=== PATIENT | male | born 1980 | race Caucasian/White ===

== ENCOUNTER → 2018-12-10 | Day surgery (SDC) | payer OTHER ==
[2018-12-04 15:35] LABS: BASOPHILS # (AUTO) 0.1 (0.0-0.1); BASOPHILS % 0.7 % (0.0-1.0); EOSINOPHILS # (AUTO) 0.2 (0.0-0.4); EOSINOPHILS % 2.2 % (0.0-6.0); HEMATOCRIT 39.4 % (38.2-49.6); HEMOGLOBIN 13.9 g/dL (14.0-18.0); LYMPHOCYTES # (AUTO) 2.5 (1.0-3.2); LYMPHOCYTES % 36.6 % (18.0-39.1); MEAN CORPUSCULAR HEMOGLOBIN 30.2 pg (28-32); MEAN CORPUSCULAR HGB CONC 35.3 g/dL (31-35); MEAN CORPUSCULAR VOLUME 85.5 fL (81-99); MONOCYTES # (AUTO) 0.6 (0.2-0.8); MONOCYTES % 9.4 % (4.4-11.3); NEUTROPHILS # (AUTO) 3.4 (2.1-6.9); NEUTROPHILS % 50.7 % (38.7-80.0); PLATELET COUNT 309 x10e3/uL (140-360); RED BLOOD COUNT 4.61 x10e6/uL (4.3-5.7); RED CELL DISTRIBUTION WIDTH 12.5 % (11.7-14.4)
[2018-12-04 15:38] LABS: CLARITY,URINE CLEAR (CLEAR); COLOR,URINE YELLOW (YELLOW); LEUKOCYTE ESTERASE ,URINE NEGATIVE (NEGATIVE); NITRITE,URINE NEGATIVE (NEGATIVE); PROTEIN,URINE DIPSTICK NEGATIVE (NEGATIVE); URINE UROBILINOGEN 0.2 mg/dL (0.2 - 1)
[2018-12-04 15:39] LABS: BILIRUBIN,URINE NEGATIVE (NEGATIVE); KETONES,URINE NEGATIVE (NEGATIVE)
[2018-12-04 15:52] LABS: INR 0.93; PARTIAL THROMBOPLASTIN TIME 28.2 seconds (23.8-35.5)
[2018-12-04 15:53] LABS: ANION GAP 13.6 mmol/L (8-16); BLOOD UREA NITROGEN 11 mg/dL (7-26); BUN/CREATININE RATIO 11 (6-25); CALCIUM 10.1 mg/dL (8.4-10.2); CARBON DIOXIDE 26 mmol/L (22-29); CHLORIDE 101 mmol/L (98-107); CREATININE, SERUM 0.97 mg/dL (0.72-1.25); EST GLOMERULAR FILTRATION RATE > 60 ML/MIN (60-); GLUCOSE 66 mg/dL (74-118); POTASSIUM 3.6 mmol/L (3.5-5.1); SODIUM 137 mmol/L (136-145)
--- NOTE | 2018-12-04 16:55 | Diagnostic Imaging Report ---
EXAM: CHEST 2 VIEWS DATE: 12/04/2018 2:41 PM INDICATION: Preop foot surgery ^PREOP ^20181204 ^1505 COMPARISON: None FINDINGS: Lines and tubes: None Heart size normal. No focal pulmonary opacity, pleural effusion or pneumothorax. Upper abdomen unremarkable. No acute bony abnormality. IMPRESSION: No evidence for acute disease. Signed by: Dr. Jay Samuel M.D. on 12/04/2018 4:52 PM
[~2018-12-10] MED LIST: BACITRACIN 50,000 UNIT VIAL ONE; BUPIVACAINE HCL 0.5% INJ 30 ML VIAL INJ ONE; CLINDAMYCIN PHOS 900MG/ 50ML 50 ML IV ONE; DEXAMETHASONE SOD PHOS INJ 4 MG/ML VIAL ONE; FENTANYL CITRATE/PF 100MCG/2 ML INJ ONE; LIDOCAINE HCL 1% LOCAL INJ 20 ML VIAL ONE; LIDOCAINE HCL 2% LOCAL INJ 5 ML SDV VIAL INJ ONE; MIDAZOLAM HCL 2 MG/2 ML VIAL ONE; ONDANSETRON HCL INJ 2MG/ML 2ML 2 MG/ML VIAL ONE; PROPOFOL IV EMULSION 10 MG/ML 20 ML VIAL ONE; SEVOFLURANE INHAL SOLN 250 ML PEN BTL ONE
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
--- OUTSIDE RECORDS SUMMARY | 2018-12-10 11:36 | XMS REPORT ---
Author Author [facility] Address Unknown Phone Unavailable Care Team Providers Care Defensive Fire Control Systems Operator Name Role Phone Cindy MATHUR Unavailable Unavailable Problems This patient has no known problems. Allergies, Adverse Reactions, Alerts This patient has no known allergies or adverse reactions. Medications This patient has no known medications. Results Test Description Test Time Test Comments Text Results Atomic Results Result Comments CHEST 2 VIEWS 2018-12-04 16:50:00 [place] [address] Patient Name: CHAD VALDES MR #: [id number] : 1980 Age/Sex: 38/M Req #: [id number] Adm Physician: Ordered by: DANNIE MATHUR DPM Report #: [id number] Location: OR Room/Bed: Procedure: [id number] DX/CHEST 2 VIEWS Exam Date: 12/04/18 Exam Time: 1505 REPORT STATUS: Signed EXAM: CHEST 2 VIEWS DATE: 12/04/2018 2:41 PM IND ICATION: Preop foot surgery PREOP 20181204 150 COMPARISON: None FINDINGS: Lines and tubes: None Heart size normal. No focal pulmonary opacity, pleural effusion or pneumothorax. Upper abdomen unremarkable. No acute bony abnormality. IMPRESSION: No evidence for acute disease. Signed by: Dr. Carlos Lanier M.D. on 12/04/2018 4:52 PM Dictated By: CARLOS LANIER MD 51 Transcribed By: SHERIDAN on 12/04/181651 COPY TO: DANNIE MATHUR DPM
[2018-12-10 18:35] VITALS: BP 131/86
--- NOTE | 2018-12-11 00:09 | Operative Report ---
DATE OF PROCEDURE: 12/10/2018 SURGEON: lCara Monroy DPM COFFIN MAKER: None. PREOPERATIVE DIAGNOSES: 1. Soft tissue mass, dorsal left first metatarsal. 2. Exostosis, dorsal left first metatarsal. POSTOPERATIVE DIAGNOSES: 1. Soft tissue mass, dorsal left first metatarsal. 2. Exostosis, dorsal left first metatarsal. PROCEDURES: 1. Excision of soft tissue mass, dorsal left first metatarsal. 2. Exostectomy, dorsal left first metatarsal. ANESTHESIA: General with a total of 25 mL of 1:1 mix of 1% lidocaine plain and 0.5% Marcaine plain. PATHOLOGY: Soft tissue mass with a white cushioning mass was sent for ID. ESTIMATED BLOOD LOSS: Less than 1 mL. COMPLICATIONS: None. GRAFTS: None. FINDINGS: There was a small white cushioning mass within in the tendon sheath has extensor hallucis longus tendon and a small bone spur to the dorsal left first metatarsal. INDICATION FOR THE PROCEDURE: The patient is a 38-year-old male, who had a painful mass at the dorsal aspect at the level of the first metatarsal. Pain with ambulation and pressure to this area. Appears to be slightly little bit hard, but mobile at this time. One also was able to feel a small hard bone underneath that area. Therefore, the above indicated procedure was warranted and all the risks and complications of the surgery were explained to the patient, including infection, pain, swelling, numbness, bleeding, delayed healing, nonhealing, numbness, neuritis, recurrence, and possible need for further surgery. At this time, there were no guarantees implied or given, and the above stated procedure was performed. NARRATIVE OF PROCEDURE: Preoperatively, the patient was identified as Nav Harmon. 30 minutes prior to the surgery, the patient was administered clindamycin 900 mg IV. The left foot was marked and he was taken to the OR and placed on the OR table in supine position. After a successful general anesthetic, the left ankle tourniquet was applied. An appropriate time-out was performed with identification of the patient and procedure. Then, the left foot was blocked with a total of 25 mL of 1:1 mix of 1% lidocaine plain and 0.5% Marcaine plain. The left foot was then prepped and draped in the usual sterile manner. The right foot was now elevated and Esmarch was utilized to exsanguinate the blood. Tourniquet was now inflated to 250 mmHg. Attention was now directed to dorsal aspect of the left first metatarsal at the previous marking one can feel that there is a hard mobile tissue. Dorsal linear incision was made overlying this mass overlying the tendon area. Utilizing a 15 blade, the incision was now deepened down to the level of subcutaneous tissue being careful to identify and retract all vital neurovascular structures and to cauterize all vessels as needed. With both blunt dissection and sharp dissection, one can see that there is a hard mass tissue within the tendon sheath of the extensor hallucis longus tendon. Therefore, the sac was now excised and passed off to Pathology. The area was then further examined with both blunt and sharp, and no further masses were identified at this time. One can also feel a very small bone spur underneath the tendon where the mass was. Therefore, a dorsal linear incision was made overlying the first metatarsal, and the periosteal tissue was reflected both medial and lateral to expose the first metatarsal and at that point, there was a small bone spur noted overlying the first metatarsal. Utilizing a hand held rasp, the bone spur was now smoothed to a smooth contour. Again, one cannot see this spur, but one can feel it. After smoothing in the area to a nice smooth contour, I felt and there was no spurring noted at this time. The area was then irrigated with copious amounts of normal saline and after complete irrigation, again the vessels were cauterized as needed, and further examination of the tendon and the area and I did not feel any masses have noted at that point or any spurring noted at that time. The area was then irrigated with a copious amounts of normal saline and for deep closure 3-0 Vicryl was utilized in a simple interrupted stitch. For skin closure, 4-0 nylon was utilized in a simple interrupted stitch. A Betadine-soaked adaptic and guaze along with 4 x 4, soft roll, Kerlix, and an Abdulaziz bandage was applied to the left foot. The tourniquet was released and capillary refill time was noted to all digits to 1 through 5 of the right foot. The patient did tolerate the procedure well and left the OR to the recovery room with vital signs stable and neurovascular status back to preoperative condition. BEKAH Byers/RONALL /[id number]
== END | disposition home or self-care (01) ==
LOC: OR 11:25
PROVIDERS: ATTEND Podiatrist
DX: M79.89 Other specified soft tissue disorders (principal); M25.772 Osteophyte, left ankle; Z88.0 Allergy status to penicillin; Z88.7 Allergy status to serum and vaccine; Z01.810 Encounter for preprocedural cardiovascular examination; Z01.812 Encounter for preprocedural laboratory examination; Z01.818 Encounter for other preprocedural examination
CPT/HCPCS: 28039; 28104; 36415; 71046; 80048; 81003; 85025; 85610; 85730; 88304; 88311; 93005; J1100; J2001 ×2; J2250; J2405; J2704